=== PATIENT | female | born 1970 | race Caucasian/White ===

== ENCOUNTER 2018-10-21 07:33 | Emergency (ER) | payer BC ==
[2018-10-21 07:50] VITALS: BP 115/76
[2018-10-21] MEDS ORDERED: Fluorescein Sodium TOPICAL* 1 MG TEST STRIP OPHTHALMIC ONE (07:58)
[2018-10-21] MEDS ORDERED: Tetracaine 0.5% OPTH.SOL 4 ML* 1 DROP BTL RIGHT EYE SCH (08:00)
[2018-10-21] MEDS ORDERED: Tetracaine 0.5% OPTH.SOL 15ML* BTL RIGHT EYE ONE (08:09)
[2018-10-21] MEDS ORDERED: Tetracaine 0.5% OPTH.SOL 4 ML* 1 DROP BTL ONE (08:10)
--- NOTE | 2018-10-21 08:26 | UC ---
Eye Complaint HPI - HPI Summary HPI Summary: right eye pain x 1 day clear discharge, + fb sensation , no change in vision , mild photophobia , no known injury - History of Current Complaint Chief Complaint: UCEye Stated Complaint: RIGHT EYE CONCERN Time Seen by Provider: 10/21/18 07:54 Hx Obtained From: Patient Hx Last Menstrual Period: s/p uterine ablation ?: No Onset/Duration: Gradual Onset, Lasting Days - 1, Still Present Timing: Constant Severity Initially: Mild Severity Currently: Moderate Pain Intensity: 4 Location of Injury: Sclera Aggravating Factor(s): Light, Blinking Alleviating Factor(s): Nothing Associated Signs And Symptoms: Positive: Photophobia, Drainage (Clear). Negative: Drainage (Purulent), Vision Impairment Bilateral, Vision Impairment Right, Vision Impairment Left, Fever, Swelling - Allergies/Home Medications Allergies/Adverse Reactions: Allergies Allergy/AdvReac Type Severity Reaction Status Date / Time No Known Allergies Allergy Verified 10/21/18 07:45 Home Medications: Home Medications Bupropion XL* [Wellbutrin XL *] 300 mg PO DAILY 10/21/18 [History Confirmed ] DULoxetine DR CAP* [Cymbalta CAP*] 20 mg PO DAILY 10/21/18 [History Confirmed ] Ibuprofen TAB* [Advil TAB*] 600 mg PO Q6H PRN 10/21/18 [History Confirmed ] Spironolactone TAB* [Aldactone TAB*] 100 mg PO DAILY 10/21/18 [History Confirmed 10/21/18] PMH/Surg Hx/FS Hx/Imm Hx Previously Healthy: Yes Other History Of: Negative For: Anticoagulant Therapy - Surgical History Surgical History: None - Family History Known Family History: Positive: Respiratory Disease - asthma - Social History Alcohol Use: None Substance Use Type: None Smoking Status (MU): Never Smoked Tobacco Review of Systems All Other Systems Reviewed And Are Negative: Yes Constitutional: Positive: Negative Skin: Positive: Negative Eyes: Positive: Drainage. Negative: Blurred Vision, Diplopia, Eye Redness, Photophobia ENT: Positive: Negative Is Patient Immunocompromised?: No Physical Exam Triage Information Reviewed: Yes Appearance: Well-Appearing, No Pain Distress, Well-Nourished Vital Signs: Initial Vital Signs Temp 98 F 10/21/18 07:43 Pulse 90 10/21/18 07:43 Resp 16 10/21/18 07:43 BP 115/76 10/21/18 07:43 Pulse Ox 98 10/21/18 07:43 Vital Signs Reviewed: Yes Eyes: Positive: Conjunctiva Clear, Discharge - clear dicharge right eye, Other: - right eye : no fb noted, no clear corneal abrasion seen , symptoms improved with Tetracaine Eye Complaint Course/Dx - Differential Dx/Diagnosis Provider Diagnosis: Corneal abrasion Discharge - Sign-Out/Discharge Documenting (check all that apply): Patient Departure All imaging exams completed and their final reports reviewed: No Studies - Discharge Plan Condition: Stable Disposition: HOME Prescriptions: Erythromycin OPTH OINT* [Erythromycin 0.5% OPTH OINT*] 1 applic RIGHT EYE TID # 1 tube Patient Education Materials: Corneal Abrasion (ED) Referrals: Minnie GUSTAFSON,Steven Chavis [Primary Care Provider] - If Needed - Billing Disposition and Condition Condition: STABLE Disposition: Home
== END 2018-10-21 08:26 | disposition home or self-care (01) ==
LOC: UCCORT 07:33
DX: S05.01XA Injury of conjunctiva and corneal abrasion without foreign body, right eye, initial encounter (principal); X58.XXXA Exposure to other specified factors, initial encounter
CPT/HCPCS: 99212; A9270-GY; G0463